=== PATIENT | male | born 1950 | race Caucasian/White ===

== ENCOUNTER 2019-11-22 09:28 | Day surgery (SDC) | payer MEDICARE, MEDICAID ==
[2019-11-15 16:11] LABS: BASOPHILS # (AUTO) 0.1 X10'3 (0-0.2); EOSINOPHILS # (AUTO) 0.2 X10'3 (0-0.9); EOSINOPHILS % (AUTO) 2.3 % (0-6); LYMPHOCYTES # (AUTO) 1.9 X10'3 (1.1-4.8); LYMPHOCYTES % (AUTO) 28.9 % (21-51); MEAN CORPUSCULAR HGB CONC 33.2 g/dL (33.0-36.5); MEAN CORPUSCULAR VOLUME 96.6 FL (78-98); MEAN PLATELET VOLUME 10.2 FL (7.4-10.4); MONOCYTES # (AUTO) 0.5 X10'3 (0-0.9); MONOCYTES % (AUTO) 7.4 % (2-12); NEUTROPHILS % (AUTO) 60.4 % (42-75); PRE OP HEMATOCRIT 44.1 % (42.0-52.0); PRE OP HEMOGLOBIN 14.6 g/dL (14.0-17.9); PRE OP PLATELET COUNT 177 X10'3 (140-440); RED BLOOD COUNT 4.56 X10'6 (4.70-6.10); RED CELL DISTRIBUTION WIDTH 13.5 % (11.5-14.5)
[2019-11-15 16:24] LABS: PRE OP PROTIME 10.3 SECONDS (9.0-12.0)
[2019-11-15 16:27] LABS: ALBUMIN 3.8 G/DL (3.4-5.0); ALBUMIN/GLOBULIN RATIO 1.1 (1.1-1.5); ALKALINE PHOSPHATASE 61 IU/L (46-116); BLOOD UREA NITROGEN 17 MG/DL (7-18); BUN/CREATININE RATIO 12.3 (5.4-32.0); CHLORIDE 109 MMOL/L (99-107); CREATININE 1.38 MG/DL (0.60-1.10); PRE OP ALT 15 U/L (30-65); PRE OP ANION GAP 3 (8-16); PRE OP AST 12 U/L (10-37); PRE OP BILIRUB, TOTAL 0.4 MG/DL (0.0-1.0); PRE OP GLUCOSE 82 MG/DL (70-104); PRE OP POTASSIUM 3.9 MMOL/L (3.4-5.1); PRE OP SODIUM 143 MMOL/L (135-145); TOTAL CARBON DIOXIDE 31.3 MMOL/L (24-32); TOTAL PROTEIN 7.4 G/DL (6.4-8.2); eGFR 51 ML/MIN
[2019-11-22] VITALS (17 sets, daily range): BP systolic 96–201; BP diastolic 60–106
[~2019-11-22] VITALS: Ht 188 cm; Wt 102.0 kg
[~2019-11-22 09:28] MED LIST: BACL10TA2 PO; BUSP5TAB3 PO; FINA5TAB11 PO; FLO0.4C PO; FLUO10CA30 PO; METF-950 PO; PANT40TA54 PO; VALS80TA32 PO; ceFAZolin 2gm in dextrose, iso 100 ML IV ONE; famotidine 20mg tablet PO ONE; ringers solution, lacted 1,000 ML IV SCH
[2019-11-22] MEDS ORDERED: ondansetron/PF 4mg/2ml inj IV PRN (11:45)
[2019-11-22] MEDS ORDERED: HYDROmorphone inj. 0.5 MG/0.5 ML DISP.SYRIN IV PRN ×2 (11:45)
[2019-11-22] MEDS ORDERED: labetalol 20mg/4ml (5mg/ml) syringe IV PRN (11:45)
[2019-11-22] MEDS ORDERED: morphine 4 MG/ML inj SYRINge IV PRN (11:45)
[2019-11-22] MEDS ORDERED: meperidine/PF 25mg/ml syringe IV PRN (11:45)
[2019-11-22] MEDS ORDERED: proCHLORperazine 10 MG/2 ml inj IV PRN ×2 (11:45→15:50)
[2019-11-22] MEDS ORDERED: acetaminophen 1,000mg/100ml IV 100 ML IV PRN (11:45)
[2019-11-22] MEDS ORDERED: morphine 2 MG/ML inj. syringe IV PRN (11:45)
[2019-11-22] MEDS ORDERED: hydrALAZINE 20mg/ml inj. IV PRN (11:45)
[2019-11-22] MEDS ORDERED: ringers solution, lacted 1,000 ML IV SCH (11:45)
[2019-11-22] MEDS ORDERED: tetracaine 1% (10mg/ml) pres. free inj. ONE (13:04)
[2019-11-22] MEDS ORDERED: midazolam 2 mg/2 ml injection ONE (13:10)
[2019-11-22] MEDS ORDERED: fentaNYL/PF 50MCG/1 ML 2ML syringe ONE ×2 (13:11→14:33)
[2019-11-22] MEDS ORDERED: LIDOcaine 2% 10ml TOPICAL JELLY (Urojet) ONE (13:20)
[2019-11-22] MEDS ORDERED: propofol inj 20 ML IV ONE ×4 (13:38→15:14)
--- NOTE | 2019-11-22 15:32 | NUR ---
Received from OR via , accompanied by Anesthesiologist DR ASH and report given by Anesthesiolgist. AWAKENS TO VOICE. VITALS STABLE. JUAN PAIN. SENSATION AT THE HIPS. CBI WITH PALE CLEAR PINK IN BAG.
[2019-11-22] MEDS ORDERED: LIDOcaine 2% 10ml TOPICAL JELLY (Urojet) TP ONE (15:50)
[2019-11-22] MEDS ORDERED: acetaminophen 325mg tablet PO PRN (15:50)
[2019-11-22] MEDS ORDERED: mag hydrox/Alum hydrox/simeth 30ml oral suspension PO PRN (15:50)
[2019-11-22] MEDS ORDERED: zolpidem 5mg tablet PO PRN (15:50)
--- NOTE | 2019-11-22 16:52 | NUR ---
Report called to receiving nurse. Transferred via BED Belongings . Special Issues communicated to receiving nurse. AWAKE AND ORIENTED. VITALS STABLE. STATES PAIN IMPROVING. TO SURGICAL RM 346A AT THIS TIME.
--- NOTE | 2019-11-22 16:52 | NUR ---
RECEIVED REPORT FROM GARDENIA PATEL. AWAITING PATIENT ARRIVAL.
[2019-11-22] MEDS: ceFAZolin inj. 1,000 MG in dextrose 5%-water 50ml 50 ML IV SCH (17:17)
[2019-11-22] MEDS: potassium cl 20mEq in 1/2 NS 1,000 ML IV SCH ×2 (17:17→20:14)
--- NOTE | 2019-11-22 18:15 | NUR ---
Problems reprioritized. Patient report given, questions answered & plan of care reviewed with JORGE LIGHT.
--- NOTE | 2019-11-22 18:45 | NUR ---
Patient in room [facility]. I have received report from JORGE Rowe and had the opportunity to ask questions and assume patient care.
[2019-11-22] MEDS: metFORMIN 500mg tablet PO SCH (20:11)
[2019-11-22] MEDS: baclofen 10mg tablet PO SCH (20:12)
[2019-11-22] MEDS: docusate sod 100mg capsule PO SCH (20:12)
[2019-11-22] MEDS: busPIRone 5mg tablet PO SCH (20:12)
[2019-11-22] MEDS: HYDROcodone/acetaminophen 10/325mg tab PO PRN (20:29)
[2019-11-22] MEDS: ondansetron/PF 4mg/2ml inj IV PRN (20:29)
[2019-11-22] MEDS: oxybutynin 5mg tablet PO PRN (20:32)
[2019-11-23 00:18] VITALS: BP 149/60
[2019-11-23] MEDS: ceFAZolin inj. 1,000 MG in dextrose 5%-water 50ml 50 ML IV SCH ×2 (00:28→09:24)
--- NOTE | 2019-11-23 01:00 | NUR ---
Pt w/CBI, c/o abdominal pain. Per order, hand irrigated and small amt of blood clots noted during irrigation. Pt tolerated well. Will continue to monitor.
[2019-11-23] MEDS: HYDROcodone/acetaminophen 10/325mg tab PO PRN (02:15)
[2019-11-23 04:11] VITALS: BP 134/74
[2019-11-23] MEDS: potassium cl 20mEq in 1/2 NS 1,000 ML IV SCH (04:14)
[2019-11-23] MEDS: oxybutynin 5mg tablet PO PRN (04:14)
[2019-11-23 04:52] LABS: BASOPHILS # (AUTO) 0.1 X10'3 (0-0.2); BASOPHILS % (AUTO) 0.6 % (0-1); EOSINOPHILS # (AUTO) 0.1 X10'3 (0-0.9); EOSINOPHILS % (AUTO) 1.5 % (0-6); HEMATOCRIT 40.1 % (42.0-52.0); HEMOGLOBIN 13.3 g/dl (14.0-17.9); LYMPHOCYTES # (AUTO) 1.5 X10'3 (1.1-4.8); LYMPHOCYTES % (AUTO) 17.4 % (21-51); MEAN CORPUSCULAR HEMOGLOBIN 31.6 PG (27.0-31.0); MEAN CORPUSCULAR HGB CONC 33.1 g/dL (33.0-36.5); MEAN CORPUSCULAR VOLUME 95.6 FL (78-98); MEAN PLATELET VOLUME 10.2 FL (7.4-10.4); MONOCYTES # (AUTO) 0.8 X10'3 (0-0.9); MONOCYTES % (AUTO) 9.2 % (2-12); NEUTROPHILS # (AUTO) 6.1 X10'3 (1.8-7.7); NEUTROPHILS % (AUTO) 71.3 % (42-75); PLATELET COUNT 144 X10'3 (140-440); RED CELL DISTRIBUTION WIDTH 13.2 % (11.5-14.5); WHITE BLOOD COUNT 8.5 X10'3 (4.5-11.0)
[2019-11-23 05:08] LABS: ALBUMIN 3.1 G/DL (3.4-5.0); ANION GAP 6 (8-16); BLOOD UREA NITROGEN 13 MG/DL (7-18); BUN/CREATININE RATIO 10.2 (5.4-32.0); CALCIUM 8.1 MG/DL (8.5-10.1); CHLORIDE 106 MMOL/L (99-107); CREATININE 1.28 MG/DL (0.60-1.10); GLUCOSE 107 MG/DL (70-104); POTASSIUM 3.7 MMOL/L (3.5-5.1); SODIUM 139 MMOL/L (135-145); TOTAL CARBON DIOXIDE 26.9 MMOL/L (24-32); eGFR 55 ML/MIN
--- NOTE | 2019-11-23 06:20 | NUR ---
Patient in room [facility] 346. I have received report from JORGE Alanis and had the opportunity to ask questions and assume patient care.
[2019-11-23 06:30] VITALS: BP 135/69
--- NOTE | 2019-11-23 06:44 | NUR ---
Problems reprioritized. Patient report given, questions answered & plan of care reviewed with JORGE Dalal.
[2019-11-23] MEDS ORDERED: pantoprazole 40mg Tablet.DR PO SCH ×2 (07:30→08:00)
[2019-11-23] MEDS ORDERED: finasteride 5mg tablet PO SCH (08:00)
[2019-11-23] MEDS ORDERED: FLUoxetine 10mg capsule PO SCH (08:00)
[2019-11-23] MEDS ORDERED: losartan 25mg tablet PO SCH (08:00)
[2019-11-23] MEDS ORDERED: tamsulosin 0.4mg capsule PO SCH (08:00)
[2019-11-23 08:42] LABS: HEMOGLOBIN A1C 5.9 % (4.5-6.2)
[2019-11-23] MEDS: ondansetron/PF 4mg/2ml inj IV PRN (09:07)
[2019-11-23] MEDS: docusate sod 100mg capsule PO SCH (09:21)
[2019-11-23] MEDS: busPIRone 5mg tablet PO SCH ×2 (09:21→12:49)
[2019-11-23] MEDS: metFORMIN 500mg tablet PO SCH (09:23)
[2019-11-23] MEDS: baclofen 10mg tablet PO SCH ×2 (09:23→12:49)
[2019-11-23] MEDS ORDERED: DOCU-148 PO (10:38)
[2019-11-23 11:00] VITALS: BP 163/92
--- NOTE | 2019-11-23 15:00 | NUR ---
DC inst provided to pt. IV DC'd, tip intact. All belongings sent w/pt. WC to front lobby.
== END 2019-11-23 15:02 | disposition home or self-care (01) ==
LOC: PAS 09:28 → SUR 3N 15:46 → PAS 11-23 15:02
PROVIDERS: ATTEND Urology
DX: N21.0 Calculus in bladder (principal); N40.1 Benign prostatic hyperplasia with lower urinary tract symptoms; N13.8 Other obstructive and reflux uropathy; J44.9 Chronic obstructive pulmonary disease, unspecified; E11.9 Type 2 diabetes mellitus without complications; F32.9 Major depressive disorder, single episode, unspecified; I10 Essential (primary) hypertension; F12.90 Cannabis use, unspecified, uncomplicated; Z20.828 Contact with and (suspected) exposure to other viral communicable diseases; Z79.899 Other long term (current) drug therapy; Z79.01 Long term (current) use of anticoagulants; Z98.890 Other specified postprocedural states; Z87.442 Personal history of urinary calculi
CPT/HCPCS: 36415; 52317; 52601; 80048; 80053; 82948; 83036; 85025; 85610; 85730; 86885; 86900; 86901; 87635; 93005; J0690; J1170; J2175; J2250; J2405; J2704; J3010; J7030; J7060; 88300; 88305; A4346; A4355; A4615; G0378; J3480; J7120

== ENCOUNTER 2020-10-20 09:50 | Outpatient (CLI) | payer MEDICARE, MEDICAID ==
[~2020-10-20] VITALS: Ht 188 cm; Wt 106.1 kg
[~2020-10-20 09:50] MED LIST changes: +DOCU-148 PO; -ceFAZolin 2gm in dextrose, iso 100 ML IV ONE; -famotidine 20mg tablet PO ONE; -ringers solution, lacted 1,000 ML IV SCH
[2020-10-20] MEDS ORDERED: OXYB5TAB29 PO (12:07)
[2020-10-20] MEDS ORDERED: ROSU5TAB PO (12:07)
[2020-10-20] MEDS ORDERED: VALS40TA2 PO (12:07)
[2020-10-20] MEDS ORDERED: DOCU100C40 PO (12:10)
[2020-10-20 12:52] LABS: BASOPHILS # (AUTO) 0.1 X10'3 (0-0.2); BASOPHILS % (AUTO) 0.7 % (0-1); EOSINOPHILS % (AUTO) 0.4 % (0-6); LYMPHOCYTES # (AUTO) 1.6 X10'3 (1.1-4.8); LYMPHOCYTES % (AUTO) 19.3 % (21-51); MEAN CORPUSCULAR HEMOGLOBIN 31.2 PG (27.0-31.0); MEAN CORPUSCULAR HGB CONC 32.6 g/dL (33.0-36.5); MEAN CORPUSCULAR VOLUME 95.8 FL (78-98); MEAN PLATELET VOLUME 10.3 FL (7.4-10.4); MONOCYTES # (AUTO) 0.5 X10'3 (0-0.9); MONOCYTES % (AUTO) 6.1 % (2-12); NEUTROPHILS % (AUTO) 73.5 % (42-75); PRE OP HEMATOCRIT 45.3 % (42.0-52.0); PRE OP HEMOGLOBIN 14.8 g/dL (14.0-17.9); PRE OP PLATELET COUNT 172 X10'3 (140-440); RED BLOOD COUNT 4.73 X10'6 (4.70-6.10); RED CELL DISTRIBUTION WIDTH 13.9 % (11.5-14.5)
[2020-10-20 13:03] LABS: ALBUMIN 3.7 G/DL (3.4-5.0); ALKALINE PHOSPHATASE 88 IU/L (46-116); BLOOD UREA NITROGEN 16 MG/DL (7-18); BUN/CREATININE RATIO 10.7 (5.4-32.0); CALCIUM 8.4 MG/DL (8.5-10.1); CHLORIDE 107 MMOL/L (99-107); CREATININE 1.49 MG/DL (0.60-1.10); PRE OP ALT 23 U/L (30-65); PRE OP ANION GAP 9 (8-16); PRE OP AST 17 U/L (10-37); PRE OP BILIRUB, TOTAL 0.7 MG/DL (0.0-1.0); PRE OP GLUCOSE 110 MG/DL (70-104); PRE OP POTASSIUM 3.9 MMOL/L (3.4-5.1); PRE OP SODIUM 145 MMOL/L (135-145); TOTAL CARBON DIOXIDE 28.7 MMOL/L (24-32); TOTAL PROTEIN 7.5 G/DL (6.4-8.2); eGFR 46 ML/MIN
[2020-10-20 13:07] LABS: HEMOGLOBIN A1C 5.9 % (4.5-6.2)
[2020-10-23] MEDS ORDERED: OXYB5TAB16 PO (11:06)
[2020-10-23] MEDS ORDERED: ROSU20TA31 PO (11:12)
[2020-10-26] MEDS ORDERED: ringers solution, lacted 1,000 ML IV SCH (05:00)
[2020-10-26] MEDS ORDERED: tranexamic acid 650mg tablet PO ONE (05:30)
[2020-10-26] MEDS ORDERED: vancomycin 1,500 MG in NS 300ml IV soln IV ONE (05:30)
[2020-10-26] MEDS ORDERED: famotidine 20mg tablet PO ONE (05:30)
[2020-10-26] MEDS ORDERED: cefazolin/dext.iso 2gm/100ml IV ONE (05:30)
[2020-10-26] MEDS ORDERED: albuterol 2.5 MG/3 ML nebule NEB PRN (05:30)
== END 2020-10-20 23:59 | disposition home or self-care (01) ==
LOC: PRE-OP 09:50 → EDSTATUS 10-26 12:30
PROVIDERS: ATTEND Orthopaedic Surgery
DX: Z01.812 Encounter for preprocedural laboratory examination (principal); R00.1 Bradycardia, unspecified; M25.511 Pain in right shoulder; M19.011 Primary osteoarthritis, right shoulder; Z20.822 Contact with and (suspected) exposure to COVID-19; Z68.29 Body mass index [BMI] 29.0-29.9, adult
CPT/HCPCS: 36415; 71046; 80053; 83036; 85025; 87081; 93005; U0003; U0005; J3370; J7040; J7120

== ENCOUNTER 2021-01-25 07:48 | Inpatient (IN) | payer MEDICAID, MEDICARE ==
[2021-01-19 15:45] LABS: BASOPHILS # (AUTO) 0.1 X10'3 (0-0.2); BASOPHILS % (AUTO) 0.6 % (0-1); EOSINOPHILS # (AUTO) 0.1 X10'3 (0-0.9); EOSINOPHILS % (AUTO) 0.9 % (0-6); LYMPHOCYTES # (AUTO) 1.9 X10'3 (1.1-4.8); LYMPHOCYTES % (AUTO) 20.9 % (21-51); MEAN CORPUSCULAR HEMOGLOBIN 31.8 PG (27.0-31.0); MEAN CORPUSCULAR HGB CONC 33.5 g/dL (33.0-36.5); MEAN CORPUSCULAR VOLUME 94.8 FL (78-98); MEAN PLATELET VOLUME 9.7 FL (7.4-10.4); MONOCYTES # (AUTO) 0.8 X10'3 (0-0.9); MONOCYTES % (AUTO) 9.1 % (2-12); NEUTROPHILS # (AUTO) 6.3 X10'3 (1.8-7.7); NEUTROPHILS % (AUTO) 68.5 % (42-75); PRE OP HEMOGLOBIN 14.8 g/dL (14.0-17.9); PRE OP PLATELET COUNT 173 X10'3 (140-440); RED BLOOD COUNT 4.64 X10'6 (4.70-6.10); RED CELL DISTRIBUTION WIDTH 13.5 % (11.5-14.5)
[2021-01-19 16:03] LABS: ALBUMIN 3.7 G/DL (3.4-5.0); ALBUMIN/GLOBULIN RATIO 0.9 (1.1-1.5); ALKALINE PHOSPHATASE 78 IU/L (46-116); BLOOD UREA NITROGEN 16 MG/DL (7-18); BUN/CREATININE RATIO 11.9 (5.4-32.0); CALCIUM 8.6 MG/DL (8.5-10.1); CHLORIDE 105 MMOL/L (99-107); CREATININE 1.34 MG/DL (0.60-1.10); PRE OP ALT 31 U/L (30-65); PRE OP ANION GAP 10 (8-16); PRE OP AST 18 U/L (10-37); PRE OP BILIRUB, TOTAL 0.6 MG/DL (0.0-1.0); PRE OP GLUCOSE 83 MG/DL (70-104); PRE OP POTASSIUM 4.2 MMOL/L (3.4-5.1); PRE OP SODIUM 142 MMOL/L (135-145); TOTAL CARBON DIOXIDE 27.5 MMOL/L (24-32); TOTAL PROTEIN 7.8 G/DL (6.4-8.2); eGFR 52 ML/MIN
[2021-01-19 16:08] LABS: HEMOGLOBIN A1C 6.1 % (4.5-6.2)
[~2021-01-25] VITALS: Ht 188 cm; Wt 108.9 kg
[2021-01-25] VITALS (23 sets, daily range): BP systolic 115–165; BP diastolic 72–104
[~2021-01-25 07:48] MED LIST changes: -DOCU-148 PO; +DOCU100C40 PO; -FINA5TAB11 PO; -FLO0.4C PO; -FLUO10CA30 PO; +METF-1203 PO; -METF-950 PO; +OXYB5TAB16 PO; +PROZ10C PO; +ROSU20TA31 PO; +cefazolin/dext.iso 2gm/50ml IV ONE; +famotidine 20mg tablet PO ONE; +ringers solution, lacted 1,000 ML IV SCH; +tranexamic acid 650mg tablet PO ONE; +vancomycin 1,500 MG in NS 300ml IV soln IV ONE
[2021-01-25] MEDS ORDERED: fentaNYL/PF 50MCG/1 ML 2ML syringe ONE ×2 (11:52→12:37)
[2021-01-25] MEDS ORDERED: MIDAZolam 1 MG/ML 5ML VIAL ONE (11:52)
[2021-01-25] MEDS ORDERED: ketorolac trometh. 30mg/ml inj. ONE (11:54)
[2021-01-25] MEDS ORDERED: ROPIVAcaine 0.5% (5mg/ml) 30ml vial ONE ×2 (11:54→12:36)
[2021-01-25] MEDS ORDERED: LIDOcaine 2% (20mg/ml) 5ml vial ONE (11:55)
[2021-01-25] MEDS ORDERED: propofol inj 20 ML IV ONE (11:55)
[2021-01-25] MEDS ORDERED: ondansetron/PF 4mg/2ml inj ONE (12:30)
[2021-01-25] MEDS ORDERED: dexamethasone sod phosphate 4mg/ml inj. ONE (12:30)
[2021-01-25] MEDS ORDERED: morphine 2 MG/ML inj. syringe IV PRN (13:05)
[2021-01-25] MEDS ORDERED: ROPIVAcaine 0.2% (10 MG/5 ML) BOLUS INJECTION INTERSCALE PRN (13:05)
[2021-01-25] MEDS ORDERED: meperidine/PF 25mg/ml syringe IV PRN ×2 (13:05)
[2021-01-25] MEDS ORDERED: ringers solution, lacted 1,000 ML IV SCH (13:05)
[2021-01-25] MEDS ORDERED: morphine 4 MG/ML inj SYRINge IV PRN (13:05)
[2021-01-25] MEDS ORDERED: ondansetron/PF 4mg/2ml inj IV PRN ×2 (13:05→14:25)
[2021-01-25] MEDS ORDERED: proCHLORperazine 10 MG/2 ml inj IV PRN (13:05)
--- NOTE | 2021-01-25 14:00 | NUR ---
Received from OR via BED, accompanied by Anesthesiologist DR ODONNELL and report given by Anesthesiologist AND PRODUCT SAFETY TECHNICAL ASSISTANT. PT DROWSY, NO S/S OF DISTRESS/DISCOMFORT. RIGHT SHOULDER W/DRSG CDI, SHOULDER WRAP, ICE PACK, IMMOBILIZER IN PLACE. Addendum: 01/25/21 at 1424 by Loreta Reynolds RN Amended: Links added.
[2021-01-25] MEDS: meperidine/PF 25mg/ml syringe IV PRN ×2 (14:10→15:23)
[2021-01-25] MEDS ORDERED: HYDROmorphone inj. 0.5 MG/0.5 ML DISP.SYRIN IV PRN (14:25)
[2021-01-25] MEDS ORDERED: acetaminophen 325mg tablet PO PRN (14:25)
[2021-01-25] MEDS: potassium cl 20mEq in 1/2 NS 1,000 ML IV SCH ×2 (14:25→20:48)
[2021-01-25] MEDS ORDERED: oxyCODONE IR 5mg (immed. release) tablet PO PRN (14:25)
[2021-01-25] MEDS ORDERED: magnesium hydroxide 30ml (MOM) UD suspension PO PRN (14:25)
[2021-01-25] MEDS ORDERED: diphenhydrAMINE 25mg capsule PO PRN ×2 (14:25)
[2021-01-25] MEDS ORDERED: bisacodyl 10mg suppository rectal RC PRN (14:25)
[2021-01-25] MEDS: ROPIVAcaine 0.2%/PF PUMP/bolus 545 ML INTERSCALE SCH (14:38)
--- NOTE | 2021-01-25 16:13 | NUR ---
Patient in room [facility] 900. I have received report from Loreta ramirez and had the opportunity to ask questions and assume patient care.
--- NOTE | 2021-01-25 16:20 | NUR ---
Report called to receiving nurse. Transferred via BED BY BUS MECHANIC'S W/2 BAGS OF BELONGINGS SENT TO ROOM 349A, RECEIVING RN NOTIFIED OF PTS ARRIVAL. PT STATES PAIN IS IMPROVING. Special Issues communicated to receiving nurse. YES. Addendum: 01/25/21 at 1633 by Loreta Reynolds RN Amended: Links added.
[2021-01-25] MEDS: ceFAZolin/D5W- 1GM premix 50 ML IV SCH (17:30)
[2021-01-25] MEDS: oxyCODONE IR 5mg (immed. release) tablet PO PRN (17:31)
--- NOTE | 2021-01-25 18:20 | NUR ---
Patient in room [facility] 349A. I have received report from JORGE Shannon and had the opportunity to ask questions and assume patient care.
--- NOTE | 2021-01-25 18:25 | NUR ---
Problems reprioritized. Patient report given, questions answered & plan of care reviewed with Sally ramirez.
[2021-01-25] MEDS: docusate sod 100mg capsule PO SCH (19:46)
[2021-01-25] MEDS: acetaminophen 325mg tablet PO SCH (19:46)
[2021-01-25] MEDS: metFORMIN 500mg tablet PO SCH (19:47)
[2021-01-25] MEDS ORDERED: vancomycin/NS 1 GM ADD-VANTAGE 250 ML IV SCH (20:00)
[2021-01-25] MEDS: sennosides 8.6mg tablet PO SCH (21:13)
[2021-01-25] MEDS: baclofen 10mg tablet PO SCH (21:13)
[2021-01-25] MEDS: oxybutynin 5mg tablet PO SCH (21:13)
[2021-01-25] MEDS: busPIRone 5mg tablet PO SCH (21:13)
[2021-01-25] MEDS: HYDROmorphone 1 mg/ml syringe IV PRN (21:16)
[2021-01-26] VITALS: BP 130/88
[2021-01-26] MEDS: ceFAZolin/D5W- 1GM premix 50 ML IV SCH (00:52)
[2021-01-26] MEDS: acetaminophen 325mg tablet PO SCH ×4 (02:00→20:36)
[2021-01-26] MEDS: potassium cl 20mEq in 1/2 NS 1,000 ML IV SCH ×2 (03:57→14:25)
[2021-01-26] MEDS: HYDROmorphone 1 mg/ml syringe IV PRN (03:58)
[2021-01-26 05:20] VITALS: BP 129/90
[2021-01-26 06:00] VITALS: BP 147/96
[2021-01-26 06:12] LABS: BASOPHILS % (AUTO) 0.1 % (0-1); EOSINOPHILS % (AUTO) 0 % (0-6); HEMATOCRIT 40.2 % (42.0-52.0); HEMOGLOBIN 13.2 g/dl (14.0-17.9); LYMPHOCYTES # (AUTO) 0.9 X10'3 (1.1-4.8); LYMPHOCYTES % (AUTO) 6.4 % (21-51); MEAN CORPUSCULAR HEMOGLOBIN 31.6 PG (27.0-31.0); MEAN CORPUSCULAR VOLUME 95.8 FL (78-98); MEAN PLATELET VOLUME 10.2 FL (7.4-10.4); MONOCYTES # (AUTO) 0.8 X10'3 (0-0.9); MONOCYTES % (AUTO) 5.8 % (2-12); NEUTROPHILS # (AUTO) 12.7 X10'3 (1.8-7.7); NEUTROPHILS % (AUTO) 87.7 % (42-75); PLATELET COUNT 174 X10'3 (140-440); RED BLOOD COUNT 4.19 X10'6 (4.70-6.10); RED CELL DISTRIBUTION WIDTH 13.6 % (11.5-14.5); WHITE BLOOD COUNT 14.5 X10'3 (4.5-11.0)
[2021-01-26 06:21] LABS: ANION GAP 9 (8-16); CHLORIDE 103 MMOL/L (99-107); POTASSIUM 4.3 MMOL/L (3.5-5.1); SODIUM 138 MMOL/L (135-145); TOTAL CARBON DIOXIDE 25.7 MMOL/L (24-32)
--- NOTE | 2021-01-26 06:38 | NUR ---
Problems reprioritized. Patient report given, questions answered & plan of care reviewed with JORGE Smith.
--- NOTE | 2021-01-26 06:42 | NUR ---
Patient in room [facility]. I have received report from JORGE Zavala and had the opportunity to ask questions and assume patient care.
[2021-01-26] MEDS ORDERED: ketorolac trometh. 30mg/ml inj. IV ONE (08:45)
[2021-01-26] MEDS: proCHLORperazine 10 MG/2 ml inj IV PRN (09:03)
[2021-01-26] MEDS: pantoprazole 40mg Tablet.DR PO SCH (10:12)
[2021-01-26] MEDS: baclofen 10mg tablet PO SCH ×3 (10:12→20:37)
[2021-01-26] MEDS: atorvastatin 20mg tablet PO SCH (10:12)
[2021-01-26] MEDS: docusate sod 100mg capsule PO SCH ×2 (10:13→20:35)
[2021-01-26] MEDS: losartan 50mg tablet PO SCH (10:13)
[2021-01-26] MEDS: aspirin 325mg tablet PO SCH (10:13)
[2021-01-26] MEDS: busPIRone 5mg tablet PO SCH ×3 (10:13→20:34)
[2021-01-26] MEDS: oxybutynin 5mg tablet PO SCH ×3 (10:13→20:34)
[2021-01-26] MEDS: metFORMIN 500mg tablet PO SCH ×2 (10:13→20:35)
[2021-01-26] MEDS: oxyCODONE IR 5mg (immed. release) tablet PO PRN ×2 (10:14→15:50)
[2021-01-26] MEDS: FLUoxetine 10mg capsule PO SCH (10:15)
[2021-01-26 11:00] VITALS: BP_SYST 160; BP_SYST 96; BP_DIAS 63; BP_DIAS 91
--- NOTE | 2021-01-26 13:27 | NUR ---
Diabetes consult: Noted A1C 6.1 DM ed not indicated at this time. Pt s/p reverse arthroplasty of R shoulder this admit, written high protein diet ed w/ RD contact info placed in pt chart Addendum: 01/26/21 at [address] Amended: Links added.
--- NOTE | 2021-01-26 18:16 | NUR ---
Problems reprioritized. Patient report given, questions answered & plan of care reviewed with PATIENCE Groves.
[2021-01-26 20:00] VITALS: BP 121/66
[2021-01-26] MEDS: celeCOXIB 100mg capsule PO SCH (20:35)
[2021-01-26] MEDS: sennosides 8.6mg tablet PO SCH (20:35)
[2021-01-27] VITALS: BP 107/69
[2021-01-27] MEDS: potassium cl 20mEq in 1/2 NS 1,000 ML IV SCH ×2 (01:11→06:25)
[2021-01-27] MEDS: proCHLORperazine 10 MG/2 ml inj IV PRN (01:58)
[2021-01-27] MEDS: acetaminophen 325mg tablet PO SCH ×3 (02:13→13:33)
[2021-01-27 06:35] LABS: BASOPHILS % (AUTO) 0.2 % (0-1); EOSINOPHILS % (AUTO) 0 % (0-6); HEMOGLOBIN 11.8 g/dl (14.0-17.9); LYMPHOCYTES % (AUTO) 6.6 % (21-51); MEAN CORPUSCULAR HGB CONC 33.7 g/dL (33.0-36.5); MEAN CORPUSCULAR VOLUME 94.9 FL (78-98); MEAN PLATELET VOLUME 10.3 FL (7.4-10.4); MONOCYTES # (AUTO) 1.2 X10'3 (0-0.9); MONOCYTES % (AUTO) 7.7 % (2-12); NEUTROPHILS # (AUTO) 13.1 X10'3 (1.8-7.7); NEUTROPHILS % (AUTO) 85.5 % (42-75); PLATELET COUNT 149 X10'3 (140-440); RED BLOOD COUNT 3.69 X10'6 (4.70-6.10); RED CELL DISTRIBUTION WIDTH 13.5 % (11.5-14.5); WHITE BLOOD COUNT 15.3 X10'3 (4.5-11.0)
--- NOTE | 2021-01-27 06:51 | NUR ---
Patient in room [facility]. I have received report from PATIENCE Groves and had the opportunity to ask questions and assume patient care.
[2021-01-27 07:00] VITALS: BP 161/70
[2021-01-27] MEDS: baclofen 10mg tablet PO SCH ×2 (07:51→13:33)
[2021-01-27] MEDS: metFORMIN 500mg tablet PO SCH (07:51)
[2021-01-27] MEDS: celeCOXIB 100mg capsule PO SCH (07:51)
[2021-01-27] MEDS: losartan 50mg tablet PO SCH (07:51)
[2021-01-27] MEDS: docusate sod 100mg capsule PO SCH (07:51)
[2021-01-27] MEDS: busPIRone 5mg tablet PO SCH ×2 (07:51→13:33)
[2021-01-27] MEDS: aspirin 325mg tablet PO SCH (07:52)
[2021-01-27] MEDS: FLUoxetine 10mg capsule PO SCH (07:52)
[2021-01-27] MEDS: pantoprazole 40mg Tablet.DR PO SCH (07:52)
[2021-01-27] MEDS: atorvastatin 20mg tablet PO SCH (07:52)
[2021-01-27] MEDS: oxybutynin 5mg tablet PO SCH ×2 (07:57→13:33)
[2021-01-27 11:00] VITALS: BP 122/84
[2021-01-27] MEDS ORDERED: OXYC-658 PO (12:42)
[2021-01-27] MEDS: ROPIVAcaine 0.2%/PF PUMP/bolus 545 ML INTERSCALE SCH (13:33)
--- NOTE | 2021-01-27 14:00 | NUR ---
Pt stated he was not DC today. Spoke with Meredith Diggs NP who indicated she and Dr Cordova indicate he is to DC today. Phoned Pt's caregiver to arrange bulk picker, msg left, awaiting call back.
[2021-01-27] MEDS ORDERED: acetaminophen 325mg tablet PO PRN (14:25)
[2021-01-27] MEDS ORDERED: ASPI-1 PO (15:35)
--- NOTE | 2021-01-28 18:40 | NUR ---
Contacted patients home phone number and spoke to Patients care give Radha to advise patient left his walker in the ER. Per Radha he is fine he has a walker that he can use at home and does not need it. Called Er admitting and spoke to the ER nobody is aware of this but they will tell someone if they come across the walker .
== END 2021-01-27 16:00 | disposition home health service (06) | DRG 322 ==
LOC: PAS IN 07:48 → SUR 3N 16:21
PROVIDERS: ADMIT Orthopaedic Surgery; ATTEND Orthopaedic Surgery
PROC: 0LS30ZZ Reposition Right Upper Arm Tendon, Open Approach (ICD-10-PCS; 2021-01-25)
PROC: 3E0T3BZ Introduction of Anesthetic Agent into Peripheral Nerves and Plexi, Percutaneous Approach (ICD-10-PCS; 2021-01-25)
PROC: 3E0T33Z Introduction of Anti-inflammatory into Peripheral Nerves and Plexi, Percutaneous Approach (ICD-10-PCS; 2021-01-25)
PROC: 0RRJ00Z Replacement of Right Shoulder Joint with Reverse Ball and Socket Synthetic Substitute, Open Approach (ICD-10-PCS; principal; 2021-01-25 11:43)
DX: M19.011 Primary osteoarthritis, right shoulder (principal); D62 Acute posthemorrhagic anemia; M65.811 Other synovitis and tenosynovitis, right shoulder; M75.101 Unspecified rotator cuff tear or rupture of right shoulder, not specified as traumatic; Z79.899 Other long term (current) drug therapy
CPT/HCPCS: 36415; 80051; 80053; 82948; 83036; 85025; 87081; 97110; 97116; 97161; 97530; A4565; A4618; A7000; C1776; G0378; J0690; J0780; J1100; J1170; J1885; J2175; J2250; J2405; J2704; J2795; J3010; J3370; J3480; J3490; J7040; J7120; U0003; U0005